=== PATIENT | female | born 1970 | race Caucasian/White ===

== ENCOUNTER 2016-11-13 08:27 | Day surgery (SDC) | payer OTHER ==
[2016-11-06 16:37] VITALS: BMI 37.5
--- NOTE | 2016-11-12 09:42 | HP ---
Satellite [facility] - Chief Complaint Chief Complaint: left knee pain - Past Medical History Allergies/Adverse Reactions: Allergies Allergy/AdvReac Type Severity Reaction Status Date / Time No Known Allergies Allergy Verified 11/06/16 16:37 ...LMP: 10/13/16 - Current Medications Current Medications: Medication Instructions Recorded Albuterol Sulfate [Proventil HFA 1 - 2 inh PO BID PRN 11/06/16 Inhaler -] Atorvastatin Ca [Lipitor] 20 mg PO DAILY 11/06/16 Ferrous Sulfate 325 mg PO DAILY 11/06/16 Meloxicam [Mobic] 15 mg PO DAILY 11/06/16 Metoprolol Succinate [Toprol Xl] 100 mg PO DAILY 11/06/16 Paroxetine HCl [Paxil -] 20 mg PO BID 11/06/16 Ramipril 5 mg PO DAILY 11/06/16 Zolpidem Tartrate [Ambien] 10 mg PO HS 11/06/16 Satellite Physical Exam - Physical Examination General Appearance: Well Nourished, Well Developed, Alert & Oriented x3, Obese ENT: Clear Lung: Normal air movement Heart: Regular rate & rhythm Extremities: Other (left knee- + swelling, +ttp, decr rom, nvi xrays show severe medial djd) Neurological: Intact, Alert, Oriented Satellite Impression/Plan - Impression/Plan Impression: left knee medial djd Operative Procedure: left medial lluvia ukr Date to be Performed: 11/13/16
[2016-11-13] MEDS ORDERED: CELECOXIB 200 MG CAPSULE PO ONE (08:46)
[2016-11-13] MEDS ORDERED: oxyCODONE HCL 10 MG SUSTAINED ACTING TABLET PO ONE (08:46)
[2016-11-13] MEDS ORDERED: TRANEXAMIC ACID 1000 MG/10 ML VIAL IVPUSH ONE (08:46)
[2016-11-13] MEDS ORDERED: GABAPENTIN 300 MG CAPSULE (FP) PO ONE (08:46)
[2016-11-13] MEDS ORDERED: CEFAZOLIN 2 GM in DEXTROSE 5%-WATER - 50 ML IVPB ONE (08:46)
[2016-11-13] MEDS ORDERED: ROPIVICAINE 0.2%/MORPH PF/KETOROLAC - 51ML DISP.SYRINGE IA ONE ×2 (08:46→13:12)
[2016-11-13] MEDS ORDERED: MIDAZOLAM HCL 2 MG/2 ML SINGLE DOSE VIAL ONE ×2 (10:16→12:00)
[2016-11-13] MEDS ORDERED: DEXAMETHASONE SOD PHOSPHATE/PF 10 MG/ML SDV ONE (10:16)
[2016-11-13] MEDS ORDERED: ROPIVACAINE HCL 0.5% 30ML VIAL ONE (10:16)
[2016-11-13] MEDS ORDERED: GELATIN, ABSORBABLE 100 EACH SPONGE TP ONE (10:44)
[2016-11-13] MEDS ORDERED: THROMBIN (BOVINE) 5,000 UNIT VIAL TP ONE ×2 (10:44→12:40)
[2016-11-13] MEDS ORDERED: ceFAZolin SODIUM 1 GM VIAL ONE ×2 (10:44→11:22)
[2016-11-13] MEDS ORDERED: TRANEXAMIC ACID 1000 MG/10 ML VIAL ONE ×2 (11:22)
[2016-11-13] MEDS ORDERED: PROPOFOL 20 ML ONE (12:36)
[2016-11-13] MEDS ORDERED: LIDOCAINE HCL/PF 2% SDV 5ML VIAL ONE (13:04)
[2016-11-13] MEDS ORDERED: MAG HYDROX/AL HYDROX/SIMETH 30 ML UNIT-DOSE CUP PO PRN (13:33)
[2016-11-13] MEDS ORDERED: ONDANSETRON 4 MG/2 ML VIAL IVPB PRN (13:33)
[2016-11-13] MEDS ORDERED: ALBUTEROL SO4 6.7 GM HFA INHALER IH PRN (13:34)
--- NOTE | 2016-11-13 13:40 | OP ---
Operative Note - Note: Operative Date: 11/13/16 (breanna) Pre-Operative Diagnosis: left knee medial djd Operation: left medial lluvia ukr Post-Operative Diagnosis: Same as Pre-op Surgeon: Jeremiah Simon Producer: Reji Tinajero Anesthesiologist/ANGULAR DEVELOPER: Natalia Ocasio Anesthesia: Spinal, Local Specimens Removed: bone fragments Estimated Blood Loss (mls): 100 Operative Report Dictated: Yes
[2016-11-13] MEDS ORDERED: LACTATED RINGERS SOLUTION 1,000 ML IV SCH (13:45)
[2016-11-13] MEDS ORDERED: oxyCODONE HCL 5 MG TABLET PO PRN ×2 (14:53)
[2016-11-13] MEDS ORDERED: PROMETHAZINE HCL 25 MG/1 ML VIAL IVPUSH PRN (14:53)
[2016-11-13] MEDS: ACETAMINOPHEN 325 MG TABLET (FP) PO SCH ×3 (15:05→20:26)
--- NOTE | 2016-11-13 15:26 | SPEC ---
DATE OF OPERATION: 11/13/2016 PREOPERATIVE DIAGNOSIS: Degenerative joint disease, right knee. POSTOPERATIVE DIAGNOSIS: Degenerative joint disease, right knee. PROCEDURE: Right medial unicompartmental knee replacement with robotic-assisted navigation (MAKOplasty) and patelloplasty. SURGICAL ATTENDING: Reina Simon M.D. CATASTROPHE CLAIMS SUPERVISOR: JEFFERY Juarez ANESTHESIA: Regional and spinal. CLOSURE: Medial BARON components with No. 3 femur, No. 4 tibia, 9 mm polyethylene, No. 1 Vicryl to fascia, 0 and 2-0 for subcutaneous, and 3-0 Monocryl subcuticular with skin glue for skin, 4-0 undyed Vicryl for pin sites. ESTIMATED BLOOD LOSS: Negligible. TOURNIQUET TIME: Approximately 25 minutes. COMPLICATIONS: None. CONDITION: To recovery room in stable condition. DESCRIPTION OF PROCEDURE: Patient was taken to the operating room. Spinal and femoral block anesthesia was administered by the anesthesiologist. IV Kefzol and TXA were administered prophylactically prior to the case. A well-padded pneumatic tourniquet was placed on the right proximal thigh. The right lower extremity was prepped and draped in the usual sterile fashion. A 6 cm longitudinal incision was made along the medial retinaculum from mid patella toward the tibial tubercle. Hemostasis was achieved using Bovie cautery. Sharp dissection was carried down to the level of the capsule, which was opened the entire length of incision. Subperiosteal dissection in the anterior medial proximal tibia. Periosteal elevator was used to facilitate this dissection. Partial fat pad excision was performed to gain visualization. A femoral and tibial checkpoint were malleted into place. Two bicortical pins were drilled through small stab incisions into the femur, 1 handbreadth above the patella. Two bicortical pins were drilled into the tibia 1 handbreadth below the tibial tubercle through small stab incisions as well. To these, pins were attached to clamps and the navigation arrays. The knee was then registered with the navigation device by ascertaining the center of rotation of the hip, both the medial and lateral malleoli, at approximately 50 points on the tibia and femur. Registration was within BARON parameters, being less than half a millimeter. At this time, the medial osteophytes on both the femur and tibia were removed by use of rongeur. The knee was taken through a range of motion and with stressing the medial compartment open at 0, 30, 60, 90 and 120 degrees. Stress points were obtained in order to develop a flexion / extension and a tightness / looseness graph. The robotic navigation device obtained a virtual tracking of the knee and found that the traction was in excellent position. The components were manipulated virtually in order to obtain a flexion/extension; tightness/looseness graph was then +/- 1 mm. The robot was then brought into the field and registered with the navigation device. The robot was then used to kevin the bone on both the femur and the tibia to the specifications and direction of the navigation device. All excess bone, osteophytes, and cartilage were removed, including the medial meniscus. Care was taken to protect the MCL throughout the case. The trial components were then placed into the knee with the appropriate polyethylene plastic trial liner. The knee was taken through a range of motion and the graph on the navigation device was then used again to confirm ideal position of the components and ideal tightness/looseness of the components. The trial components were removed, along with the checkpoints and the array. The knee was exsanguinated with an Esmarch bandage and tourniquet inflated to 175 mmHg. The knee was post-antibiotic irrigated and then dried and then Avitene and Gelfoam were placed to aid in hemostasis. The real components were then cemented in using modern generation cement techniques with antibiotics, cement and pressurization. All excess cement was removed. The knee was thoroughly inspected to remove any excess cement and bone fragments. The real polyethylene component was then clipped into place. Range of motion revealed excellent range of motion and good tensioning throughout. The knee was post-antibiotic irrigated. The fascia was closed using 2-0 Vicryl interrupted suture. The tourniquet was deflated. Total tourniquet time was less than 30 minutes. Hemostasis was obtained. Another dose of TXA was administered. The subcutaneous layer was closed with 2-0 Vicryl, 3-0 Monocryl subcuticular for skin. A pain cocktail was infused throughout the soft tissue. The pin sites were irrigated and closed with 4-0 Vicryl and skin glue was used for all incisions. Sterile Aquacel dressing was placed on all incisions followed by a dressing from the toes to the thigh. Patient was transferred to the recovery room in stable condition. No complications. REINA SIMON M.D. [id number]
[2016-11-13] MEDS ORDERED: ZOLPIDEM TARTRATE 5 MG TABLET PO PRN (16:10)
[2016-11-13] MEDS: CEFAZOLIN 2 GM/D5W 50 ML IVPB SCH (20:29)
[2016-11-13] MEDS ORDERED: ATORVASTATIN CA 20 MG TABLET (FP) PO SCH (22:00)
[2016-11-13] MEDS ORDERED: PATIENT'S OWN MEDICATION (NON-FORMULARY) (Zolpidem Tartrate [Ambien] 10 MG) PO SCH (22:00)
[2016-11-13] MEDS: GABAPENTIN 300 MG CAPSULE (FP) PO SCH (22:04)
[2016-11-13] MEDS: oxyCODONE HCL 10 MG SUSTAINED ACTING TABLET PO SCH (22:04)
[2016-11-13] MEDS: PARoxetine HCL 20 MG TABLET (FP) PO SCH (22:05)
[2016-11-13] MEDS: SENNOSIDES/DOCUSATE COMBO (SENNA PLUS) TABLET (UD) PO SCH (22:05)
[2016-11-14] MEDS: ACETAMINOPHEN 325 MG TABLET (FP) PO SCH ×2 (03:36→09:18)
[2016-11-14] MEDS: CEFAZOLIN 2 GM/D5W 50 ML IVPB SCH (03:36)
[2016-11-14 06:18] VITALS: BP 119/66; PULSE 72; TEMP 97.6
--- NOTE | 2016-11-14 07:56 | DS ---
Physical Examination Vital Signs: Vital Signs Temperature 97.6 F 11/14/16 05:00 Pulse Rate 72 11/14/16 05:00 Respiratory Rate 19 11/14/16 05:00 Blood Pressure 119/66 11/14/16 05:00 O2 Sat by Pulse Oximetry (%) 98 11/13/16 22:43 Discharge Summary Reason For Visit: LEFT KNEE OSTEOARTHRITIS Procedures: Principal: s/p left medial lluvia ukr Hospital Course: admitted for elective left medial lluvia ukr, uneventful post-op, stable for d/c Condition: Good - Instructions Diet, Activity, Other Instructions: regular diet keep dressing intact, may shower with aquacel in place weight bearing and range of motion as tolerated ice, elevate ankle pumps Aspirin 325mg daily x 6 weeks compression device at home when not ambulating f/u in the office in 1 week, call for appt: [phone] Referrals: Jeremiah Simon MD [Staff Physician] - Disposition: VNS/HOME HEALTH CARE - Home Medications Comprehensive Discharge Medication List: Ambulatory Orders Albuterol Sulfate [Proventil HFA Inhaler -] 1 - 2 inh PO BID PRN 11/06/16 Atorvastatin Ca [Lipitor] 20 mg PO DAILY 11/06/16 Ferrous Sulfate 325 mg PO DAILY 11/06/16 Meloxicam [Mobic] 15 mg PO DAILY 11/06/16 Metoprolol Succinate [Toprol Xl] 100 mg PO DAILY 11/06/16 Paroxetine HCl [Paxil -] 20 mg PO BID 11/06/16 Ramipril 5 mg PO DAILY 11/06/16 Zolpidem Tartrate [Ambien] 10 mg PO HS 11/06/16 Aspirin [ASA -] 325 mg PO DAILY@0800 tablet 11/13/16 Oxycodone HCl/Acetaminophen [Percocet 5-325 mg Tablet -] 1 - 2 tab PO Q6H #50 tab MDD 8 11/13/16
--- NOTE | 2016-11-14 07:56 | PN ---
Addendum entered and electronically signed by Reji Tinajero PA 11/14/16 07:56: left medial lluvia ukr Original Note: Progress Note (short form) - Note Progress Note: Ortho Pt seen and examined s/p right medial lluvia ukr pod #1 Selected Entries 11/14/16 05:00 Temperature 97.6 F Pulse Rate 72 Respiratory 19 Rate Blood Pressure 119/66 dressing c/d/i, calf soft, nt rom 0-60,nvi a/p PT dvt ppx pain control d/c home today f/u in 1 week
[2016-11-14] MEDS ORDERED: ASPIRIN 325 MG TABLET PO SCH (08:00)
[2016-11-14] MEDS: PARoxetine HCL 20 MG TABLET (FP) PO SCH (09:18)
[2016-11-14] MEDS: oxyCODONE HCL 10 MG SUSTAINED ACTING TABLET PO SCH (09:18)
[2016-11-14] MEDS: GABAPENTIN 300 MG CAPSULE (FP) PO SCH (09:18)
[2016-11-14] MEDS: SENNOSIDES/DOCUSATE COMBO (SENNA PLUS) TABLET (UD) PO SCH (09:18)
[2016-11-14] MEDS ORDERED: MULTIVITAMINS (DAILY MVI) TABLET (FP) PO SCH (10:00)
[2016-11-14] MEDS ORDERED: PANTOPRAZOLE 40 MG TABLET (FP) PO SCH (10:00)
[2016-11-14] MEDS ORDERED: FERROUS SO4 325 MG TABLET (FP) PO SCH (10:00)
[2016-11-14] MEDS ORDERED: PATIENT'S OWN MEDICATION (NON-FORMULARY) (Ferrous Sulfate [Ferrous Sulfate] 325 MG) PO SCH (10:00)
[2016-11-14] MEDS ORDERED: METOPROLOL SUCCINATE 100 MG TAB.SR.24H (FP) PO SCH (10:00)
[2016-11-14] MEDS ORDERED: RAMIPRIL 5 MG CAPSULE (FP) PO SCH (10:00)
== END 2016-11-14 12:00 | disposition home health service (06) ==
LOC: FASU 08:27 → FM/S 16:15 → FASU 11-14 12:00
PROVIDERS: ATTEND Orthopaedic Surgery
PROC: 8E0YXBZ Computer Assisted Procedure of Lower Extremity (ICD-10-PCS; 2016-11-13)
PROC: 8E0Y0CZ Robotic Assisted Procedure of Lower Extremity, Open Approach (ICD-10-PCS; 2016-11-13)
PROC: 0SRD0L9 Replacement of Left Knee Joint with Medial Unicondylar Synthetic Substitute, Cemented, Open Approach (ICD-10-PCS; principal; 2016-11-13 11:27)
DX: M17.12 Unilateral primary osteoarthritis, left knee (principal)
CPT/HCPCS: 20985; 27446; C1776; S2900; 73560-TC-LT; 84703; 94010; 94760; 97116-GP; 97163-GP

== ENCOUNTER → 2017-06-15 | Emergency (ER) | payer OTHER ==
[~2017-06-15] MED LIST: ALBUTEROL SO4 2.5/IPRATROPIUM 0.5 INH SOL 3 ML VIAL.NEB. NEB ONE; DEXAMETHASONE SOD PHOSPHATE 10 MG/1 ML VIAL IM ONE; DEXAMETHASONE SOD PHOSPHATE 10 MG/1 ML VIAL ONE
[2017-06-15 22:36] VITALS: BP 139/76; PULSE 75; TEMP 97.6; BMI 37.9
--- NOTE | 2017-06-15 23:25 | PDOC ---
History of Present Illness - General History Source: Patient Exam Limitations: No Limitations - History of Present Illness Initial Comments: This is a 47 yo female with h/o recent AICD placement, asthma, and HLD who presents c/o red, itchy, burning rash for the past 5 days. It started on both palms 5 days ago, spread up her arms, and has since then spread to her chest, back, and legs. She notes having been seen at [facility] ED for this rash and was diagnosed with hives and given prednisone. She has no prednisone left and took Benadryl 25 mg earlier today, but her rash has continued to worsen. This afternoon she additionally had an onset of throat discomfort and wheezing. She had transient lightheadedness this afternoon but none now. She was on PCN for three days about one week ago, but denies any new food consumption, medications , body soaps, laundry detergents, lotions, recent gardening, or other exposures. She has never had this happen before. <Klarissa Easley - Last Filed: 06/15/17 23:39> <Mae Owens - Last Filed: 06/16/17 01:42> - General Chief Complaint: Rash Stated Complaint: ALLERGIC REACTION Time Seen by Provider: 06/15/17 22:53 Past History - Travel Traveled outside of the country in the last 30 days: Yes - Past Medical History Anemia: No Asthma: Yes Cancer: No Cardiac Disorders: Yes (irregular heart beat) CVA: No COPD: No CHF: No Dementia: No Diabetes: No GI Disorders: No Disorders: No HTN: No Hypercholesterolemia: Yes Liver Disease: No Seizures: No Thyroid Disease: No - Surgical History Abdominal Surgery: No Appendectomy: No Cardiac Surgery: Yes (Defibrillator) Cholecystectomy: No Lung Surgery: No Neurologic Surgery: No Orthopedic Surgery: No - Psycho/Social/Smoking Cessation Hx Suicidal Ideation: No Smoking History: Never smoked Have you smoked in the past 12 months: No Information on smoking cessation initiated: No Hx Alcohol Use: No Drug/Substance Use Hx: No Substance Use Type: None Hx Substance Use Treatment: No <Klarissa Easley - Last Filed: 06/15/17 23:39> <Mae Owens - Last Filed: 06/16/17 01:42> - Past Medical History Allergies/Adverse Reactions: Allergies Allergy/AdvReac Type Severity Reaction Status Date / Time No Known Allergies Allergy Verified 06/15/17 22:32 Home Medications: Ambulatory Orders Albuterol Sulfate [Proventil HFA Inhaler -] 1 - 2 inh PO BID PRN 11/06/16 Metoprolol Succinate [Toprol Xl] 100 mg PO DAILY 11/06/16 Paroxetine HCl [Paxil -] 20 mg PO BID 11/06/16 Ramipril 5 mg PO DAILY 11/06/16 Zolpidem Tartrate [Ambien] 10 mg PO HS 11/06/16 Oxycodone HCl/Acetaminophen [Percocet 5-325 mg Tablet -] 1 - 2 tab PO Q6H #50 tab MDD 8 11/13/16 Methylprednisolone [Medrol Dose Rajeev] 4 mg PO ASDIR #21 tablet 06/16/17 Review of Systems - Review of Systems Able to Perform ROS?: Yes Constitutional: No: Chills, Fever, Unexplained wgt Loss HEENTM: No: Nose Congestion, Throat Pain Respiratory: Yes: Shortness of Breath, Wheezing. No: Cough Cardiac (ROS): No: Chest Pain, Palpitations ABD/GI: No: Constipated, Diarrhea, Nausea, Vomiting : No: Burning, Dysuria Musculoskeletal: No: Back Pain, Neck Pain Integumentary: Yes: Rash. No: Bruising Neurological: Yes: Dizziness (lightheaded). No: Headache, Numbness, Tingling, Weakness Endocrine: No: Unexplained Weight Gain, Unexplained Weight Loss <Klarissa Easley - Last Filed: 06/15/17 23:39> *Physical Exam - Vital Signs Last Vital Signs Temp Pulse Resp BP Pulse Ox 97.6 F 75 22 139/76 98 06/15/17 22:32 06/15/17 22:32 06/15/17 22:32 06/15/17 22:32 06/15/17 22:32 - Physical Exam General Appearance: Yes: Nourished, Appropriately Dressed, Mild Distress, Obese , Other (appears uncomfortable, scratching skin on chest and arms, conversive but speaking in <5 word sentences) HEENT: positive: EOMI, CARI, Normal ENT Inspection, Normal Voice, Symmetrical, Pharynx Normal, Hearing Grossly Normal, Other (no tonsillar swelling, tongue swelling, or lip swelling). negative: Scleral Icterus (R), Scleral Icterus (L) , Pharyngeal Erythema, Nasal Congestion Neck: positive: Trachea midline, Supple. negative: Tender, Rigid Respiratory/Chest: positive: Lungs Clear, Normal Breath Sounds, Other (anterior chest wall diffuse urticaria and scattered excoriations from itching, tachypneic ). negative: Respiratory Distress, Crackles, Rhonchi, Stridor, Wheezing Cardiovascular: positive: Regular Rhythm, Regular Rate. negative: Murmur Gastrointestinal/Abdominal: positive: Normal Bowel Sounds, Soft. negative: Tender, Organomegaly, Pulsatile Mass, Guarding Musculoskeletal: positive: Normal Inspection. negative: Decreased Range of Motion, Vertebral Tenderness Extremity: positive: Normal Capillary Refill, Normal Inspection, Normal Range of Motion. negative: Tender, Cyanosis Integumentary: positive: Normal Color, Dry, Warm. negative: Erythema, Rash, Bruising Neurologic: positive: programmer or analyst II-XII NML intact, Fully Oriented, Alert, Normal Mood/ Affect, Normal Response, Motor Strength 5/5 <Klarissa Easley - Last Filed: 06/15/17 23:39> - Vital Signs Last Vital Signs Temp Pulse Resp BP Pulse Ox 97.6 F 75 22 139/76 98 06/15/17 22:32 06/15/17 22:32 06/15/17 22:32 06/15/17 22:32 06/15/17 22:32 <Mae Owens - Last Filed: 06/16/17 01:42> ED Treatment Course - Medications Given in the ED: ED Medications Discontinued Medications Generic Name Dose Route Start Last Admin Trade Name Ronnieq PRN Reason Stop Dose Admin Albuterol/Ipratropium 1 amp 06/15/17 23:25 06/15/17 23:37 Duoneb - NEB 06/15/17 23:26 1 amp ONCE ONE Administration Dexamethasone Sodium Phosphate 10 mg 06/15/17 23:13 06/15/17 23:37 Decadron Injection - IM 06/15/17 23:14 10 mg ONCE ONE Administration <Mae Owens - Last Filed: 06/16/17 01:42> Medical Decision Making - Medical Decision Making 47 yo female with recent AICD placement and recent PCN use p/w urticaria and SOB. She is tachypneic but not wheezy, has excoriations 2/2 diffuse urticarial rash worse on arms and chest wall. Ordered is 50 mg Benadryl IM, DuoNeb. <Klarissa Easley - Last Filed: 06/15/17 23:39> - Medical Decision Making 06/16/17 01:39 Pt comes with urticaria and dermatographia. SHe had a similar episode a week ago and at that time she was seen at [facility]. Pt may be allergic to food that she ingested (possibly eggs) Pt understands that she may be allergic to soaps, hair coloring or other chemicals she may be exposed to. <Mae Owens - Last Filed: 06/16/17 01:42> *DC/Admit/Observation/Transfer - Attestations Physician Attestion: 06/15/17 23:47 I, Dr. Klarissa Easley, attest that this document has been prepared under my direction and personally reviewed by me in its entirety. I further attest, that it accurately reflects all work, treatment, procedures and medical decision -making performed by me. <Klarissa Easley - Last Filed: 06/15/17 23:39> - Discharge Dispostion Admit: No <Mae Owens - Last Filed: 06/16/17 01:42> Diagnosis at time of Disposition: Allergic reaction, urticaria, Dermatographic urticaria - Discharge Dispostion Disposition: HOME Condition at time of disposition: Improved - Prescriptions Prescriptions: Methylprednisolone [Medrol Dose Rajeev] 4 mg PO ASDIR #21 tablet - Referrals Referrals: Jed Wright [Primary Care Provider] - - Patient Instructions Printed Discharge Instructions: DI for General Allergic Reactions
== END | disposition home or self-care (01) ==
LOC: JER 22:25
PROC: 3E0337Z Introduction of Electrolytic and Water Balance Substance into Peripheral Vein, Percutaneous Approach (ICD-10-PCS; principal; 2017-06-15)
PROC: 3E033GC Introduction of Other Therapeutic Substance into Peripheral Vein, Percutaneous Approach (ICD-10-PCS; 2017-06-15)
DX: T78.40XA Allergy, unspecified, initial encounter (principal); L50.9 Urticaria, unspecified; L50.3 Dermatographic urticaria; J45.909 Unspecified asthma, uncomplicated; R00.9 Unspecified abnormalities of heart beat; E78.00 Pure hypercholesterolemia, unspecified
CPT/HCPCS: 99282-25

== ENCOUNTER 2018-06-01 13:22 | Emergency (ER) | payer OTHER ==
[2018-06-01 13:29] VITALS: BP 137/89; PULSE 63; TEMP 97.5; BMI 38.3
[2018-06-01] MEDS ORDERED: LORATADINE 10 MG TABLET PO ONE (13:33)
[2018-06-01] MEDS ORDERED: TETRACAINE 0.5% HCL 0.6ML DROPPER.BOTTLE OU ONE (13:33)
[2018-06-01] MEDS ORDERED: predniSONE 20 MG TABLET (UD) PO ONE (13:33)
[2018-06-01] MEDS ORDERED: predniSONE 20 MG TABLET (UD) ONE (13:38)
[2018-06-01] MEDS ORDERED: LORATADINE 10 MG TABLET ONE (13:38)
[2018-06-01] MEDS ORDERED: TETRACAINE 0.5% OPHTH SOLN 2 ML BOTTLE ONE (13:38)
[2018-06-01] MEDS ORDERED: ERYTHROMYCIN 0.5% OPHTHALMIC OINTMENT 3.5 GM TUBE OU STA (13:44)
--- NOTE | 2018-06-01 13:44 | PDOC ---
History of Present Illness - General Chief Complaint: Eye Problem Stated Complaint: EYE PROBLEM Time Seen by Provider: 06/01/18 13:32 History Source: Patient Exam Limitations: No Limitations - History of Present Illness Initial Comments: 06/01/18 13:37 48 yr female history presenting with red itchy eyes swollen eyelids after having false lashes with glue placed. Pt seen at other ER yesterday given ofloxacin drops. Pt has used two doses, continues to have swelling, pain red eyes. Past History - Past Medical History Allergies/Adverse Reactions: Allergies Allergy/AdvReac Type Severity Reaction Status Date / Time No Known Allergies Allergy Verified 06/01/18 13:28 Home Medications: Ambulatory Orders Albuterol Sulfate [Proventil HFA Inhaler -] 1 - 2 inh PO BID PRN 11/06/16 Metoprolol Succinate [Toprol Xl] 100 mg PO DAILY 11/06/16 Paroxetine HCl [Paxil -] 20 mg PO BID 11/06/16 Ramipril 5 mg PO DAILY 11/06/16 Zolpidem Tartrate [Ambien] 10 mg PO HS 11/06/16 Oxycodone HCl/Acetaminophen [Percocet 5-325 mg Tablet -] 1 - 2 tab PO Q6H #50 tab MDD 8 11/13/16 Methylprednisolone [Medrol Dose Rajeev] 4 mg PO ASDIR #21 tablet 06/16/17 Erythromycin 0.5% Eye Ointment [Erythromycin 0.5% Eye Ointment -] 1 applic OU TID #2 tube 06/01/18 Erythromycin 0.5% Eye Ointment [Erythromycin 0.5% Eye Ointment -] 1 applic OU TID #2 tube 06/01/18 Loratadine 10 mg PO DAILY #5 tablet 06/01/18 Prednisone [Deltasone] 20 mg PO DAILY #5 tablet 06/01/18 Anemia: No Asthma: Yes Cancer: No Cardiac Disorders: Yes (irregular heart beat) CVA: No COPD: No CHF: No Dementia: No Diabetes: No GI Disorders: No Disorders: No HTN: No Hypercholesterolemia: Yes Liver Disease: No Seizures: No Thyroid Disease: No - Surgical History Abdominal Surgery: No Appendectomy: No Cardiac Surgery: Yes (Defibrillator) Cholecystectomy: No Lung Surgery: No Neurologic Surgery: No Orthopedic Surgery: No - Suicide/Smoking/Psychosocial Hx Smoking History: Never smoked Have you smoked in the past 12 months: No Hx Alcohol Use: No Drug/Substance Use Hx: No Substance Use Type: None Hx Substance Use Treatment: No *Physical Exam - Vital Signs Last Vital Signs Temp Pulse Resp BP Pulse Ox 97.5 F L 63 20 137/89 99 06/01/18 13:23 06/01/18 13:23 06/01/18 13:23 06/01/18 13:23 06/01/18 13:23 - Physical Exam General Appearance: Yes: Nourished, Appropriately Dressed HEENT: positive: EOMI, CARI, Other (bilateral upper eyelid swelling, redness, bilateral conjunctival erythema no discharge , EOMI without pain ) Neck: positive: Supple. negative: Tender Respiratory/Chest: positive: Lungs Clear, Normal Breath Sounds Musculoskeletal: positive: Normal Inspection Extremity: positive: Normal Capillary Refill, Normal Inspection, Normal Range of Motion Integumentary: positive: Normal Color, Dry, Warm Neurologic: positive: Fully Oriented, Alert, Normal Mood/Affect, Normal Response , Motor Strength 03/08 Procedures - Eye Procedure Alcaine Drops Administered: Yes (2 drops each eye) Antibiotic Oinment/Drps Admin: both eyes (erythromycin) Medical Decision Making - Medical Decision Making 06/01/18 14:04 cc: allergic reaction contact dermatitis from using eyelash glue with eyelashes 3 days ago , redness, swelling to the eyelids no discharge, no vision changes visual acuity without any correction : 20/45 both eyes pt denies any blurry vision or vision changes pt aware of the strict importance to follow up with the opthomologist within 48hrs. 06/01/18 17:36 *DC/Admit/Observation/Transfer Diagnosis at time of Disposition: Contact dermatitis Qualifiers: Contact dermatitis type: allergic Contact dermatitis trigger: adhesive Qualified Code(s): L23.1 - Allergic contact dermatitis due to adhesives - Discharge Dispostion Disposition: HOME Condition at time of disposition: Good - Prescriptions Prescriptions: Erythromycin 0.5% Eye Ointment [Erythromycin 0.5% Eye Ointment -] 1 applic OU TID #2 tube Erythromycin 0.5% Eye Ointment [Erythromycin 0.5% Eye Ointment -] 1 applic OU TID #2 tube Loratadine 10 mg PO DAILY #5 tablet Prednisone [Deltasone] 20 mg PO DAILY #5 tablet - Referrals Referrals: Jed Wright [Primary Care Provider] - Bethel Emery MD [Staff Physician] - - Patient Instructions Additional Instructions: take the next dose of prednisone tomorrow morning take the antihistamine tomorrow and take daily until symptoms have resolved use the eye ointment as prescribed three times a day follow with the opthomologist DR. Toro tomorrow or saturday for follow up you can also take ibuprofen 600mg every 8hrs for pain - Post Discharge Activity
[2018-06-01] MEDS ORDERED: ERYTHROMYCIN 0.5% OPHTHALMIC OINTMENT 3.5 GM TUBE ONE (14:05)
== END 2018-06-01 14:20 | disposition home or self-care (01) ==
LOC: JERFT 13:22
PROC: 4A07X0Z Measurement of Visual Acuity, External Approach (ICD-10-PCS; principal; 2018-06-01)
DX: L23.1 Allergic contact dermatitis due to adhesives (principal); Z86.79 Personal history of other diseases of the circulatory system; Z95.810 Presence of automatic (implantable) cardiac defibrillator; E78.00 Pure hypercholesterolemia, unspecified
CPT/HCPCS: 99173; 99281-25

== ENCOUNTER 2019-06-14 08:40 | Emergency (ER) | payer OTHER ==
[2019-06-14 08:45] VITALS: BP 134/86; PULSE 63; TEMP 97; BMI 38.5
[2019-06-14] MEDS ORDERED: RANITIDINE HCL 150 MG TABLET (FP) ONE (09:09)
[2019-06-14] MEDS ORDERED: diphenhydrAMINE HCL 25 MG CAPSULE (FP) PO ONE (09:09)
[2019-06-14] MEDS ORDERED: predniSONE 20 MG TABLET (UD) ONE (09:10)
[2019-06-14] MEDS ORDERED: diphenhydrAMINE HCL 50 MG CAPSULE PO ONE (09:24)
[2019-06-14] MEDS ORDERED: predniSONE 20 MG TABLET (UD) PO ONE (09:24)
[2019-06-14] MEDS ORDERED: RANITIDINE HCL 150 MG TABLET (FP) PO ONE (09:27)
--- NOTE | 2019-06-14 09:34 | PDOC ---
History of Present Illness - General Chief Complaint: Eye Problem Stated Complaint: BILAT EYE SWELLING Time Seen by Provider: 06/14/19 08:59 History Source: Patient - History of Present Illness Timing/Duration: other (yesterday) Past History - Past Medical History Allergies/Adverse Reactions: Allergies Allergy/AdvReac Type Severity Reaction Status Date / Time No Known Allergies Allergy Verified 06/14/19 08:45 Home Medications: Ambulatory Orders Albuterol Sulfate [Proventil HFA Inhaler -] 1 - 2 inh PO BID PRN 11/06/16 Metoprolol Succinate [Toprol Xl] 100 mg PO DAILY 11/06/16 Paroxetine HCl [Paxil -] 20 mg PO BID 11/06/16 Ramipril 5 mg PO DAILY 11/06/16 Zolpidem Tartrate [Ambien] 10 mg PO HS 11/06/16 Oxycodone HCl/Acetaminophen [Percocet 5-325 mg Tablet -] 1 - 2 tab PO Q6H #50 tab MDD 8 11/13/16 Methylprednisolone [Medrol Dose Rajeev] 4 mg PO ASDIR #21 tablet 06/16/17 Erythromycin 0.5% Eye Ointment [Erythromycin 0.5% Eye Ointment -] 1 applic OU TID #2 tube 06/01/18 Erythromycin 0.5% Eye Ointment [Erythromycin 0.5% Eye Ointment -] 1 applic OU TID #2 tube 06/01/18 Loratadine 10 mg PO DAILY #5 tablet 06/01/18 Prednisone [Deltasone] 20 mg PO DAILY #5 tablet 06/01/18 Diphenhydramine HCl [Benadryl -] 25 mg PO Q6H #28 capsule 06/14/19 Erythromycin 0.5% Eye Ointment [Erythromycin 0.5% Eye Ointment -] 1 applic OU Q4H #1 tube 06/14/19 Famotidine [Pepcid] 20 mg PO DAILY #7 tablet 06/14/19 Prednisone [Deltasone] 40 mg PO DAILY #8 tablet 06/14/19 Anemia: No Asthma: Yes Cancer: No Cardiac Disorders: Yes (irregular heart beat) CVA: No COPD: No CHF: No Dementia: No Diabetes: No GI Disorders: No Disorders: No HTN: No Hypercholesterolemia: Yes Liver Disease: No Seizures: No Thyroid Disease: No - Surgical History Abdominal Surgery: No Appendectomy: No Cardiac Surgery: Yes (Defibrillator) Cholecystectomy: No Lung Surgery: No Neurologic Surgery: No Orthopedic Surgery: No - Suicide/Smoking/Psychosocial Hx Smoking History: Never smoked Have you smoked in the past 12 months: No Hx Alcohol Use: No Drug/Substance Use Hx: No Substance Use Type: None Hx Substance Use Treatment: No Review of Systems - Review of Systems Constitutional: No: Chills, Fever HEENTM: No: Eye Pain *Physical Exam - Vital Signs Last Vital Signs Temp Pulse Resp BP Pulse Ox 97 F L 63 18 134/86 99 06/14/19 08:42 06/14/19 08:42 06/14/19 08:42 06/14/19 08:42 06/14/19 08:42 - Physical Exam General Appearance: Yes: Appropriately Dressed. No: Apparent Distress HEENT: positive: Normal Voice, Other (significant periorbital edema b/l, no sig ttp and no erythema, + minimal yellow discharge to lashes, + b/l conjunctival injection, no gross FB, VA 20/20 OD/OS/OU) Neck: positive: Supple. negative: Lymphadenopathy (R), Lymphadenopathy (L) Respiratory/Chest: negative: Respiratory Distress Integumentary: positive: Dry, Warm Neurologic: positive: Fully Oriented, Alert, Normal Mood/Affect ED Treatment Course - Medications Given in the ED: ED Medications Discontinued Medications Generic Name Dose Route Start Last Admin Trade Name Freq PRN Reason Stop Dose Admin Diphenhydramine HCl 50 mg 06/14/19 09:24 06/14/19 09:27 Benadryl - PO 06/14/19 09:25 50 mg ONCE ONE Administration Prednisone 60 mg 06/14/19 09:24 06/14/19 09:25 Deltasone - PO 06/14/19 09:25 60 mg ONCE ONE Administration Medical Decision Making - Medical Decision Making 06/14/19 09:50 49 yo F, no sig hx, here w/ b/l pebbles-orbital swelling and itching that started almost immediately after placing artificial lashes to upper lid w/ glue in salon yesterday. No pain inside eye, photophobia, fb sensation or visual changes. States she atempted to return to salon but site closed today. States she had similar reaction last yr after placing artificial lashes at another facility See exam Allergic rxn to b/l periorbital area s/p placement of artificial lashes yesterday Unable to remove lashes/glue in ER as d/w Dr Atkins who also evaluated pt Dose of benadryl/steroids/zantac given here -Dc w/ meds, erythromycin ointment given discharge, cold pack, w/ strict instruction to return to salon tomorrow to have g/u/lashes removed -Reasons to return d/w pt *DC/Admit/Observation/Transfer Diagnosis at time of Disposition: Periorbital edema Allergic reaction Qualifiers: Encounter type: initial encounter Qualified Code(s): T78.40XA - Allergy, unspecified, initial encounter - Discharge Dispostion Disposition: HOME Condition at time of disposition: Improved - Prescriptions Prescriptions: Diphenhydramine HCl [Benadryl -] 25 mg PO Q6H #28 capsule Erythromycin 0.5% Eye Ointment [Erythromycin 0.5% Eye Ointment -] 1 applic OU Q4H #1 tube Famotidine [Pepcid] 20 mg PO DAILY #7 tablet Prednisone [Deltasone] 40 mg PO DAILY #8 tablet - Referrals Referrals: Jed Wright [Primary Care Provider] - - Patient Instructions Printed Discharge Instructions: DI for Eye Allergic Reaction Additional Instructions: You are suffering an allergic reaction secondary to artificial lashes and glue. You need to take medications as prescribed and apply ice to both eyes to reduce swelling. Please refrain from rubbing eyes as this can make condition worse. You need to remove lashes/glu as soon as possible by returning to the store where you initially got lashes placed as we are unable to remove lashes/glue in the ER. Please return to the ER for any worsening of symptoms - Post Discharge Activity
== END 2019-06-14 09:55 | disposition home or self-care (01) ==
LOC: JERFT 08:40
DX: H05.223 Edema of bilateral orbit (principal); T78.40XA Allergy, unspecified, initial encounter; X58.XXXA Exposure to other specified factors, initial encounter; E78.00 Pure hypercholesterolemia, unspecified; J45.909 Unspecified asthma, uncomplicated; I49.9 Cardiac arrhythmia, unspecified
CPT/HCPCS: 99281-25